=== PATIENT | male | born 2005 | race African-American/Black ===

== ENCOUNTER 2023-03-05 13:51 | Emergency (ER) | payer OTHER ==
[2023-03-05 14:32] LABS: #Monocytes 0.3 thou/uL (0.11-0.59); #Neutrophils 3.2 thou/uL (1.40-6.50); %Basophils 0.5 % (0.0-1.0); %Eosinophils 0.5 % (0.0-10.0); %Lymphocytes 38.7 % (28.0-48.0); %Monocytes 5.4 % (0.0-4.0); %Neutrophils 54.2 % (31.0-61.0); Hemoglobin 15.5 g/dL (14.0-18.0); Mean Corpuscular HGB CONC 32.4 g/dL (32.0-36.0); Mean Corpuscular Hemoglobin 30.6 pg (25.0-35.0); Mean Corpuscular Volume 94.7 fl (78.0-98.0); Mean Platelet Volume 9.9 fL (7.4-10.4); Platelet Count 215 10x3/uL (130-400); RBC Distribution Width 12.6 % (11.5-14.5); Red Blood Cell (RBC) Count 5.06 mill/uL (4.00-5.20); White Blood Cell (WBC) Count 5.9 10x3/uL (4.8-10.8)
[2023-03-05] MEDS ORDERED: levETIRAcetam 500 MG/5 ML VIAL ONE (14:37)
[2023-03-05 14:54] LABS: ALT (SGPT) 10 U/L (8-55); AST (SGOT) 17 U/L (10-45); Albumin 4.9 g/dL (3.5-5.0); Alkaline Phosphatase 73 U/L (50-130); Anion Gap 21 mmol/L (10-20); BUN (Urea Nitrogen) 11 mg/dL (8.4-21.0); Bilirubin, Total 0.7 mg/dL (0.2-1.2); Calc. Creatinine Clearance 0 mL/min (70-130); Calcium 10.3 mg/dL (7.8-10.44); Carbon Dioxide 18 mmol/L (22-29); Chloride 105 mmol/L (98-107); Estimated GFR 101; Globulin 2.8 g/dL (2.4-3.5); Glucose 157 mg/dL (70-105); Magnesium 2.3 mg/dL (1.7-2.2); Potassium 3.8 mmol/L (3.5-5.1); Protein, Total 7.7 g/dL (6.0-8.3); Sodium 140 mmol/L (136-145)
[2023-03-05] MEDS ORDERED: Aspirin Chewable 81 MG TAB ONE (18:25)
== END 2023-03-05 18:30 | disposition home or self-care (01) ==
LOC: ERS 13:51 → EEVIPCON 13:51 → ERS 18:30
DX: T68.XXXA Hypothermia, initial encounter (principal); R56.9 Unspecified convulsions; I48.91 Unspecified atrial fibrillation; Z79.899 Other long term (current) drug therapy
CPT/HCPCS: 36415; 70450; 71045; 72125; 80053; 83735; 84443; 84484; 85025; 87040; 93005; 96365; J1953